=== PATIENT | male | born 1950 | race Caucasian/White ===

== ENCOUNTER 2017-12-13 06:48 | Day surgery (SDC) | payer BC ==
[~2017-12-13] VITALS: Ht 185.4 cm; Wt 82.3 kg
[2017-12-13] MEDS ORDERED: LEXAPRO20 MG PO (07:09)
[2017-12-13] MEDS ORDERED: PROTONIX 40MG T40 MG PO (07:09)
[2017-12-13 07:10] VITALS: BP 134/86; PULSE 67; TEMP 98.3
[2017-12-13] MEDS ORDERED: ZYBAN150 M1 (07:10)
[2017-12-13] MEDS ORDERED: FLONASE SENSIM9.9 ML NS (07:10)
[2017-12-13 08:30] VITALS: BP 125/78; PULSE 78; TEMP 97.8
[2017-12-13 08:45] VITALS: BP 111/70; PULSE 75
[2017-12-13 09:00] VITALS: BP 109/74; PULSE 69
== END 2017-12-13 09:17 | disposition home or self-care (01) ==
LOC: SDCO 06:48
DX: Z12.11 Encounter for screening for malignant neoplasm of colon (principal); K57.30 Diverticulosis of large intestine without perforation or abscess without bleeding
CPT/HCPCS: J2250; J2405; J3010; J7120

== ENCOUNTER → 2020-03-08 | Outpatient (CLI) | payer MEDICARE, BC ==
[~2020-03-08] MED LIST: FLONASE SENSIM9.9 ML NS; LEXAPRO20 MG PO; PROTONIX 40MG T40 MG PO; ZYBAN150 M1
== END ==
LOC: ZCOL.LAB 18:17
DX: R05 Cough (principal); R09.81 Nasal congestion; R50.9 Fever, unspecified; Z20.828 Contact with and (suspected) exposure to other viral communicable diseases